=== PATIENT | male | born 1965 | race Caucasian/White ===

== ENCOUNTER 2016-12-18 22:25 | Inpatient (IN) ==
[2016-12-18] MEDS ORDERED: ASPIRIN 325 MG TABLET PO STA (22:42)
[2016-12-18] MEDS ORDERED: ONDANSETRON 4 MG/2 ML VIAL IV STA (22:42)
--- NOTE | 2016-12-18 22:45 | EKG Report ---
Stationary ECG Study [facility] ER Test Date: 12/18/2016 10:29:03 PM Pat Name: SHEILA SULLIVAN Department: Room: 287 Gender: M Scorer Single: : 1965 Requested by: Susy Bo Order Number: [id number] Reading MD: MAX SHAHID Intervals [place] Rate: 54 P: 59 SD: 174 QRS: 44 QRSD: 102 T: 60 QT: 414 QTc: 400 Interpretive Statements SINUS BRADYCARDIA OLD ANTEROSEPTASL INFARCT Electronically Signed On 12-19-16 15:08:12 CDT by MAX SHAHID [email or web address]
[2016-12-18] MEDS ORDERED: LIDOCAINE 1% 20 ML VIAL ONE (22:46)
[2016-12-18] MEDS ORDERED: HEPARIN/NACL 0.9% 2 UNITS/ML 1,000 ML IV ONE (22:46)
[2016-12-18] MEDS ORDERED: MIDAZOLAM 2 MG/2 ML VIAL ONE (22:46)
[2016-12-18] MEDS ORDERED: HYDROmorphone 2 MG/1 ML VIAL ONE (22:46)
[2016-12-18 22:49] LABS: Basophils # 0.1 10*3/uL (0.0-0.2); Basophils % 0.7 % (0.0-0.8); Eosinophils # 0.4 10*3/uL (0.0-0.87); Eosinophils % 5.5 % (0.00-10.9); Hematocrit 44.6 VOL% (42.0-52.0); Hemoglobin 14.9 GM/DL (14.0-18.0); Immature Granulocytes % 0.3 %; Immature Granulocytes Absolute 0.02 #; Lymphocytes # 2.3 10*3/uL (1.4-4.0); Lymphocytes % 31.5 % (21.2-54.2); Mean Corpuscular HGB Conc 33.4 GM/DL (32-36); Mean Corpuscular Hemoglobin 31 PG (27-34); Mean Corpuscular Volume 93.9 FL (87-102); Monocytes # 0.7 10*3/uL (0.11-0.8); Monocytes % 9.3 % (1.7-12.7); Neutrophils # 3.8 10*3/uL (1.4-7.4); Neutrophils % 52.7 % (38.7-73.9); Platelet Count 178 T/CUMM (130-400); Red Blood Count 4.75 MC/CUMM (3.8-5.5); Red Cell Distribution Width 12.3 % (9.3-17.3); White Blood Count 7.2 T/CUMM (4-12)
[2016-12-18 22:56] LABS: INR 1.1; PT Patient Result 11.4 SECS
[2016-12-18 23:11] LABS: Albumin 3.9 G/DL (3.4-5.0); Bilirubin,Total 0.8 MG/DL (0.2-1.0); Calcium 8.8 MG/DL (8.5-10.1); Magnesium 2.2 MG/DL (1.8-2.4); Potassium 3.7 MMOL/L (3.5-5.1); Total Protein 6.7 G/DL (6.4-8.3)
--- NOTE | 2016-12-18 23:16 | XRay Report ---
Portable chest Date: 12/18/2016 Clinical history: Chest pain Comparison: 10/06/2016 Technique: Portable AP sitting chest Findings: The heart is normal in size. Artifactual densities limit the exam. The lungs remain overexpanded. Unremarkable mediastinum with degenerative changes. Impression: COPD with no acute parenchymal findings. PROCEDURE INTERPRETED AT [facility] Final Report Signed by: Dr. Daphne Ward
--- NOTE | 2016-12-18 23:18 | Cardiac Catheterization ---
Date of Procedure:: 12/18/16 Procedure: CLINICAL SUMMARY: The patient has a history of multivessel coronary artery disease with previous MIs and stenting. He was having some cardiac symptoms at home and EMS activated the pharmacy laboratory technician for ST elevation in the inferior leads. We are performing an emergent cardiac catheterization for definitive coronary artery assessment and possible revascularization. PROCEDURES PERFORMED: 1. Right femoral percutaneous arteriotomy 2. Left heart catheterization. 3. Resting hemodynamics. 4. Left ventriculography. 5. Coronary arteriography. 6. Right femoral arteriogram. 7. Angio-Seal closure of the right femoral artery. DESCRIPTION OF PROCEDURE: After obtaining informed consent, the patient was brought to the cardiac catheterization lab where the right groin was prepped and draped in the usual sterile manner. Using IV sedation, local anesthesia, and Modified Seldinger technique, a needle was placed in the right femoral artery and a sheath was positioned without difficulty. A left coronary catheter was advanced over a guidewire under fluoroscopic control to the ascending aorta where angiograms of the left coronary artery were undertaken in multiple views. After adequate angiograms, this catheter was withdrawn and a right coronary catheter was advanced over a guidewire under fluoroscopic control to the ascending aorta with angiograms of the RCA were undertaken in numerous projections. After adequate angiograms, this catheter was removed and a pigtail ventriculographic catheter was advanced over a guidewire under fluoroscopic control to the aortic valve and left ventricular pressures were measured. After adequate pressures were measured, this catheter was used to perform left ventriculography in the MCGARRY projection. This catheter was then withdrawn under hemodynamic monitoring and removed from the patient. A right femoral arteriogram was performed showing adequate sheath placement for closure device deployment. The sheath was then removed and an Angio-Seal device was used to obtain hemostasis. The patient was transferred back to the room having suffered no immediate complications. HEMODYNAMICS: See the accompanying data sheet. CORONARY ARTERIOGRAPHY: LEFT MAIN: The left main coronary artery is a moderate caliber vessel, which bifurcates into the left anterior descending and left circumflex coronary arteries. The left main coronary artery has no significant obstructive disease. LEFT CIRCUMFLEX: The left circumflex coronary artery is a small to moderate size vessel which gives off a single moderate-sized obtuse marginal branch. There are mild luminal irregularities in the circumflex system. There is a widely patent stent in the mid vessel. I don't see any significant focal obstructive disease in this vessel. It is unchanged from his previous catheterization from March 2016. LEFT ANTERIOR DESCENDING: The left anterior descending artery is a moderate size vessel which gives off a couple of small diagonal branches. There are mild luminal irregularities in the left anterior descending system but no significant focal obstructive disease is seen. 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 RIGHT CORONARY ARTERY: The right coronary artery is a small to moderate size vessel was gives off a posterior descending artery and a posterolateral system. There are mild luminal irregularities through the right coronary artery. The posterior descending artery is less than 2 mm in size. It is a relatively small vessel which has some diffuse disease in its mid to distal segment. There is an area of 50-60% stenosis in the midportion of the posterior descending coronary artery which is not significant change from previous catheterization in March 2016. LEFT VENTRICULOGRAPHY: Left ventriculogram shows left ventricular ejection fraction estimated at 35% with global hypokinesis. PERIPHERAL ARTERIOGRAPHY: Right femoral arteriogram shows a normal right iliofemoral artery with adequate sheath placement for closure device deployment. IMPRESSIONS: 1. I don't see any high-grade stenosis at this time. There is not actually appear to be an acute coronary syndrome. The patient has widely patent stents and some mild to moderate nonobstructive disease which is unchanged from previous catheterization in March 2016. 2. Moderate to severe ischemic cardiomyopathy as described above. This also appears to be relatively stable. 3. Normal right iliofemoral artery with successful and distal closure of this vessel. PLAN: The patient was transferred to the telemetry unit for further workup and management. Anesthesia: minimal conscious sedation Surgeon / Physician: Norbert Momin Estimated blood loss: minimal Condition: stable Disposition: floor - Medications / Follow-up
--- NOTE | 2016-12-18 23:20 | Emergency Department Note ---
ISalvador Mantricia, am scribing for, and in the presence of, Susy Bo DO 22:50. IAnupam Catherine, DO, personally performed the services described in this documentation, ascribed by Maeve Franco in my presence, and it is both accurate and complete 320 . Arrival - Arrival Chief Complaint: Chest Pain ED Nursing Triage Note: PT ARRIVES VIA EMS WITH COMPLAINTS OF CHEST PAIN THAT STARTED AT 1600. STATES THAT IT IS A SHARP PAIN IN THE LEFT CHEST. STATES THAT THIS HAS BEEN OFF AND ON FOR THREE WEEKS. PT RATES PAIN AT 10/10. PT STATES THAT HE FELT DIZZY AND LIKE HE WAS GOING TO PASS OUT. EMS ACTIVATED STEMI OFF ON EKG, PT ARRIVES IN NO DISTRESS. STATES THAT HE DOES HAVE SOME SOB WHEN THE PAIN STARTS. PT DENIES N/V. STATES THAT HE DID TAKE 1 SL NITRO. Mode of Arrival: Stretcher Limitations: No Limitations Source: Patient - History of Present Illness HPI Narrative: Pt is 51y male brought to ED by EMS with complains of sharp chest pain since 16: 00 today. Pt notes heart was beating "extremely fast" and syncopal episode known time frame of LOC, with some nausea, but denies left arm pain or jaw pain. Pt took 1 nitro and aspirin when pain started. Pt has PMHx of 2 episodes of NJ in 2006 and again in 2007 with 4 stents and CAD; HTN. He notes that his heart is "45% damaged." Pt is on Vale Beta sesar. Pt recently quit smoking. Onset (ago): hour(s) Consistency: constant Severity: moderate Severity scale (1-10): 5 Quality: sharp Allergies/Adverse Reactions: Allergies Allergy/AdvReac Type Severity Reaction Status Date / Time morphine Allergy Severe HIVES Verified 07/07/16 13:45 Sulfa (Sulfonamide Allergy Severe HIVES Verified 07/07/16 13:45 Antibiotics) sulfamethoxazole Allergy Severe HIVES Verified 07/07/16 13:45 [From Bactrim] trimethoprim [From Bactrim] Allergy Severe HIVES Verified 07/07/16 13:45 Home Medications: Home Medications Medication Instructions Recorded Confirmed Type Clopidogrel Bisulfate [Clopidogrel] 75 mg PO DAILY 03/13/15 12/18/16 History Diclofenac 1% Gel [Voltaren 1% Gel] 1 unit TRANSDERM BID PRN 03/13/15 12/18/16 History Gabapentin 600 mg PO TID 03/13/15 12/18/16 History Hydrocodone/Acetaminophen 1 tablet PO QID 03/13/15 12/18/16 History [Hydrocodon-Acetaminophn 10-325] Tizanidine HCl 4 mg PO TID 03/13/15 12/18/16 History Aspirin [Ecotrin] 81 mg PO DAILY 04/07/15 12/18/16 History Furosemide Tab [Lasix Tab] 40 mg PO DAILY tablet 03/12/16 12/18/16 Rx Nitroglycerin Sl Tab [Nitrostat] 0.4 mg SL Q5M PRN 07/07/16 12/18/16 History Pantoprazole Tab [Protonix Tab] 40 mg PO DAILY #30 tablet 07/08/16 12/18/16 Rx Nebivolol [Bystolic] 10 mg PO DAILY 12/18/16 12/18/16 History Rosuvastatin [Crestor] 20 mg PO BEDTIME 12/18/16 12/18/16 History Review of System - Review of System 12 point system: reviewed and no additional remarkable complaints except as stated - Review of System Constitutional: Absent: chills, diaphoresis, fever Respiratory: Absent: respiratory distress Cardiovascular: Present: chest pain (left; sharp), palpitations (extremely fast) , syncope. Absent: dyspnea on exertion, edema Gastrointestinal: Present: nausea. Absent: abdominal pain, vomiting Musculoskeletal: Absent: arm pain, neck pain Skin: Absent: rash Medical,Surgical,& Family Hx - Medical History Cardio: History of: CAD, Hypertension, [place] (x2 Stents x4) Psychological: History of: Anxiety Disorders Neurology: No history of: Seizures Respiratory: History of: COPD Gastrointestinal: History of: GERD - Surgical History Cardiac Surgeries: Sugical HX of: Cardiac Catheterization Neurologic Surgeries: Patient denies: Neurologic Surgery HEENT Surgeries: Patient denies: Thyroid Surgery Abdominal Surgeries: Patient denies: Abdominal Surgery Reproductive Surgeries: Patient denies;: Genitourinary Surgery Orthopedic Surgeries: Surgical HX of;: Orthopedic Surgery, Spinal Surgery ( spinal fusion), Total Knee Replacement (left knee) - Family History Family History: Reports;: Family Cancer (father), Family Diabetes (mother), Family Heart Disease (grandparents (both sides), mother), Family Hypertension ( "everybody") Denies;: Family Anesthesia Reaction, Family Psychiatric Problems, Family Stroke - Social History Smoking Status: Former smoker Frequency of Alcohol Use: None Type of Drug Use: None Marital Status: Unknown Functional capacity: independent ambulation Exam Vital Signs: Vital Signs Temperature 98.4 F 12/18/16 22:25 Pulse Rate 71 12/18/16 22:42 Respiratory Rate 20 12/18/16 22:42 Blood Pressure 161/85 12/18/16 22:25 O2 Sat by Pulse Oximetry 100 12/18/16 22:25 - General General appearance: alert, in no apparent distress - Head Head exam: Present: atraumatic, normocephalic - Eye Eye exam: Present: PERRL, EOMI - ENT ENT exam: Present: mucous membranes moist. Absent: mucous membranes dry - Neck Neck exam: Present: full ROM. Absent: tenderness - Chest Chest inspection: Present: symmetric chest wall rise. Absent: tenderness - Respiratory Respiratory exam: Present: normal lung sounds bilaterally. Absent: accessory muscle use, respiratory distress - Cardiovascular Cardiovascular exam: Present: regular rate, normal rhythm, normal heart sounds. Absent: tachycardia - Abdominal Exam Abdominal exam: Present: soft, normal bowel sounds. Absent: distention, tenderness, guarding, rebound - Extremities Exam Extremities exam: Present: full ROM, normal capillary refill. Absent: tenderness, pedal edema - Back Exam Back exam: Present: normal inspection - Neurological Exam Neurological exam: Present: alert, oriented X3, CN II-XII intact. Absent: motor sensory deficit - Psychiatric Psychiatric exam: Present: normal affect, normal mood - Skin Skin exam: Present: warm, dry, intact, normal color Course Course Narrative: This is a 51-year-old male is coming into the ER today following an episode of some palpitations and chest discomfort at home. He reports symptoms onset about 4 o'clock. The patient does have a significant cardiac history he's had several visits to the Interpreter Translator and does have stents in place. He reports taking all of his medications as directed. He stated that when was going on he was feeling some shortness of breath and diaphoresis but no nausea or radiation was reported. EMS arrived on scene did an EKG and called a STEMI alert. At arrival in the ER the patient's EKG for meat is really not show signs of STEMI he has left ventricular hypertrophy and very slight elevation in the inferior leads. Dr. Momin for cardiology was also in the department. He did not call a STEMI but will be taking the patient to the Interpreter Translator for further evaluation. Physical exam is also stable HCTZ and is normal neck is supple heart is regular rate and rhythm is bradycardic lungs are clear abdomen is round soft his extremities are intact his neurologic exam is nonfocal. The patient is going to the cardiology Interpreter Translator per Dr. Freire thank you - Consultations Consultation #1: Dr. Momin at bedside Results - Labs CBC & BMP: 12/18/16 22:37 12/18/16 22:37 Lab Results: I have reviewed the patients labs - EKG EKG results: interpreted by ERMD - Impressions sinus bradycardia inferior changes but no stemi noted Disposition Clinical Impression: Chest pain Case discussed with: patient Disposition: Still a Patient Condition: Stable Time of Disposition: 23:20
[2016-12-19 05:45] LABS: Basophils % 0.6 % (0.0-0.8); Eosinophils # 0.3 10*3/uL (0.0-0.87); Eosinophils % 6.8 % (0.00-10.9); Hemoglobin 12.9 GM/DL (14.0-18.0); Immature Granulocytes % 0.2 %; Immature Granulocytes Absolute 0.01 #; Lymphocytes # 2.3 10*3/uL (1.4-4.0); Lymphocytes % 47.9 % (21.2-54.2); Mean Corpuscular HGB Conc 33.1 GM/DL (32-36); Mean Corpuscular Hemoglobin 31 PG (27-34); Mean Corpuscular Volume 94.9 FL (87-102); Mean Platelet Volume 11.3 FL (9.6-12.0); Monocytes # 0.6 10*3/uL (0.11-0.8); Monocytes % 11.6 % (1.7-12.7); Neutrophils # 1.6 10*3/uL (1.4-7.4); Neutrophils % 32.9 % (38.7-73.9); Platelet Count 150 T/CUMM (130-400); Red Blood Count 4.11 MC/CUMM (3.8-5.5); Red Cell Distribution Width 12.3 % (9.3-17.3); White Blood Count 4.8 T/CUMM (4-12)
[2016-12-19 06:13] LABS: Blood Urea Nitrogen 19 MG/DL (7-18); Calcium 8.2 MG/DL (8.5-10.1); Glucose 81 MG/DL (74-106); Osmolality,Calculated 283.1 MOS/KG (273-304); Potassium 4.2 MMOL/L (3.5-5.1); Sodium 142 MMOL/L (136-145); Troponin I Only 0.019 NG/ML (0.00-0.045)
[2016-12-19 07:42] LABS: Eosinophils 4 % (0-10); Hypochromasia 1+; Lymphocytes 39 % (20-55); Platelet Estimate Adequate; Segmented Neutrophils 51 % (50-85); Total Cells Counted 100
[2016-12-19] MEDS: ASPIRIN EC 81 MG TABLET PO SCH (09:00)
[2016-12-19] MEDS: CLOPIDOGREL 75 MG TABLET PO SCH (09:00)
[2016-12-19] MEDS: tiZANidine 4 MG TABLET PO SCH ×3 (09:00→22:19)
[2016-12-19] MEDS: PANTOPRAZOLE 40 MG TABLET PO SCH (09:00)
[2016-12-19] MEDS: GABAPENTIN 600 MG TABLET PO SCH ×3 (09:00→22:18)
--- NOTE | 2016-12-19 09:48 | EKG Report ---
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
[2016-12-19] MEDS ORDERED: ceFAZolin 1,000 MG VIAL IRRIG ONE (10:55)
[2016-12-19] MEDS ORDERED: diphenhydrAMINE CAP 25 MG CAPSULE PO ONE (10:55)
[2016-12-19] MEDS ORDERED: DIAZEPAM 5 MG TABLET PO ONE (10:55)
--- NOTE | 2016-12-19 11:00 | Cardiology History & Physical ---
Assessment and Plan (1) Syncope Status: Acute Assessment and plan: The patient has palpitations followed by syncope. This is happen several times over the last week or so. Last night EMS was activated and no suspicion of an acute inferior myocardial infarction. Catheterization showed no significant new obstructive coronary disease. His previous stents were patent. Ultimately , the patient has profound bradycardia with heart rates of 40-45 at rest. He also has a severe ischemic cardio myopathy with an ejection fraction of 35% which has not changed despite revascularization and medical management. I think the patient needs a dual-chamber defibrillator to treat his severe resting bradycardia and protect him from potentially fatal cardiac arrhythmias. The risks and alternatives of this were discussed with the patient today who understands and wishes to proceed. I'm going to schedule this procedure for Tuesday. Current Visit: Yes (2) Chest pain Status: Acute Assessment and plan: I really think his chest discomfort is related to his arrhythmia. Catheterization did not show any new/significant obstructive coronary disease. Current Visit: Yes (3) Anxiety Status: Chronic Current Visit: No (4) CAD (coronary artery disease) Status: Chronic Assessment and plan: Stable multivessel coronary artery disease with patent stents on cardiac catheterization Current Visit: No (5) COPD (chronic obstructive pulmonary disease) Status: Chronic Current Visit: No (6) GE reflux Status: Chronic Current Visit: No (7) Hypertension Status: Chronic Current Visit: No (8) Ischemic cardiomyopathy Status: Chronic Assessment and plan: As noted above, with his severe ischemic cardiomyopathy, palpitations, and syncope, as well as his severe bradycardia, I think he needs a dual-chamber internal cardiac defibrillator. Current Visit: No (9) Tobacco abuse Status: Chronic Current Visit: No History of Present Illness History of present illness: Mr. Lety Ortiz is a 51 year old male who has a history of multivessel coronary artery disease with previous interventions in the past. He also has a history of a severe cardiomyopathy. Yesterday the patient was having some unusual chest discomfort symptoms. He actually had a syncopal episode. EMS was called and initial EKG showed ST elevation in the Assistant Plant Manager was activated. He was taken emergently to cardiac catheterization was this did not show any significant new coronary artery disease. The patient does have a severe ischemic cardiomyopathy with an ejection fraction of around 35%. Ultimately, the patient describes having episodes of palpitations and then finding himself waking up on the floor. I think he is having transient ventricular arrhythmias. In addition, he has had fatigue and dyspnea and his resting heart rate hovers around 40-45 range. There are no medications that should be causing his bradycardia. Based on his cardiac catheterization, his cardiomyopathy, his severe bradycardia, and his symptoms of palpitations and syncope I think ultimately that he needs a dual-chamber defibrillator. We discussed the risks and alternatives of this and I'm going to schedule this for Tuesday. Home Medications Medication Instructions Recorded Confirmed Type Clopidogrel Bisulfate [Clopidogrel] 75 mg PO DAILY 03/13/15 12/18/16 History Diclofenac 1% Gel [Voltaren 1% Gel] 1 unit TRANSDERM BID PRN 03/13/15 12/18/16 History Gabapentin 600 mg PO TID 03/13/15 12/18/16 History Hydrocodone/Acetaminophen 1 tablet PO QID 03/13/15 12/18/16 History [Hydrocodon-Acetaminophn 10-325] Tizanidine HCl 4 mg PO TID 03/13/15 12/18/16 History Aspirin [Ecotrin] 81 mg PO DAILY 04/07/15 12/18/16 History Furosemide Tab [Lasix Tab] 40 mg PO DAILY tablet 03/12/16 12/18/16 Rx Nitroglycerin Sl Tab [Nitrostat] 0.4 mg SL Q5M PRN 07/07/16 12/18/16 History Pantoprazole Tab [Protonix Tab] 40 mg PO DAILY #30 tablet 07/08/16 12/18/16 Rx Nebivolol [Bystolic] 10 mg PO DAILY 12/18/16 12/18/16 History Rosuvastatin [Crestor] 20 mg PO BEDTIME 12/18/16 12/18/16 History Home Medications Medication Instructions Recorded Confirmed Type Clopidogrel Bisulfate [Clopidogrel] 75 mg PO DAILY 03/13/15 12/18/16 History Diclofenac 1% Gel [Voltaren 1% Gel] 1 unit TRANSDERM BID PRN 03/13/15 12/18/16 History Gabapentin 600 mg PO TID 03/13/15 12/18/16 History Hydrocodone/Acetaminophen 1 tablet PO QID 03/13/15 12/18/16 History [Hydrocodon-Acetaminophn 10-325] Tizanidine HCl 4 mg PO TID 03/13/15 12/18/16 History Aspirin [Ecotrin] 81 mg PO DAILY 04/07/15 12/18/16 History Furosemide Tab [Lasix Tab] 40 mg PO DAILY tablet 03/12/16 12/18/16 Rx Nitroglycerin Sl Tab [Nitrostat] 0.4 mg SL Q5M PRN 07/07/16 12/18/16 History Pantoprazole Tab [Protonix Tab] 40 mg PO DAILY #30 tablet 07/08/16 12/18/16 Rx Nebivolol [Bystolic] 10 mg PO DAILY 12/18/16 12/18/16 History Rosuvastatin [Crestor] 20 mg PO BEDTIME 12/18/16 12/18/16 History Allergies Allergy/AdvReac Type Severity Reaction Status Date / Time morphine Allergy Severe HIVES Verified 07/07/16 13:45 Sulfa (Sulfonamide Allergy Severe HIVES Verified 07/07/16 13:45 Antibiotics) sulfamethoxazole Allergy Severe HIVES Verified 07/07/16 13:45 [From Bactrim] trimethoprim [From Bactrim] Allergy Severe HIVES Verified 07/07/16 13:45 12 point system: reviewed and no additional remarkable complaints except as stated Medical,Surgical,& Family Hx - Medical History Cardio: History of: CAD, Hypertension, [place] (x2 Stents x4) Psychological: History of: Anxiety Disorders Neurology: No history of: Seizures Respiratory: History of: COPD Gastrointestinal: History of: GERD - Surgical History Cardiac Surgeries: Sugical HX of: Cardiac Catheterization Neurologic Surgeries: Patient denies: Neurologic Surgery HEENT Surgeries: Patient denies: Thyroid Surgery Abdominal Surgeries: Patient denies: Abdominal Surgery Reproductive Surgeries: Patient denies;: Genitourinary Surgery Orthopedic Surgeries: Surgical HX of;: Orthopedic Surgery, Spinal Surgery ( spinal fusion), Total Knee Replacement (left knee) - Family History Family History: Reports;: Family Cancer (father), Family Diabetes (mother), Family Heart Disease (grandparents (both sides), mother), Family Hypertension ( "everybody") Denies;: Family Anesthesia Reaction, Family Psychiatric Problems, Family Stroke - Social History Smoking Status: Former smoker Frequency of Alcohol Use: None Type of Drug Use: None Cardiology Physical Exam - Constitutional Vitals: Vital Signs Temp Pulse Resp BP Pulse Ox 97.6 F 44 L 18 115/63 98 12/19/16 08:00 12/19/16 08:00 12/19/16 08:00 12/19/16 08:00 12/19/16 08:00 Intake and Output 12/18/16 12/19/16 12/19/16 23:59 07:59 15:59 Output Total 400 / 400 Balance -400 / -400 Output: Urine 400 / 400 Other: Voiding Method Urinal Weight 52.072 kg Patient Weight 12/19/16 23:59 Weight 52.072 kg Exam: General: Appears well developed, very thin, no apparent distress HEENT: Normocephalic, atraumatic Neck: Supple Neck, Midline Trachea, No Bruit, No JVD Cardiac: Reg Rate and Rhythm, 2/6 systolic Murmur, no gallop, no rub Lungs: Clear to auscultation, No Wheeze, Rales, Rhonchi Neuro: Cranial Nerve 2-12 Intact, Motor Function Grossly Intact Abdomen: Soft, Active Bowel Sounds, No Masses, No Pulsations/Bruits Skin: Normal color, no rash Extremities: No Clubbing, No Cyanosis, No Edema, Normal Upper Extr. Pulses Musculoskeletal: No acute abnormality noted Psychiatric: The patient does not appear to be anxious or depressed Result/EKG - Labs CBC & BMP: 12/19/16 04:57 12/19/16 04:57 Lab Results: I have reviewed the past 24 hour labs Labs: Laboratory Results - last 24 hr 12/19/16 12/19/16 12/19/16 01:52 04:57 04:57 WBC 4.8 D RBC 4.11 Hgb 12.9 L D Hct 39.0 L MCV 94.9 MCH 31 MCHC 33.1 RDW 12.3 Plt Count 150 MPV 11.3 Neut % (Auto) 32.9 L Lymph % (Auto) 47.9 [place] % (Auto) 11.6 Eos % (Auto) 6.8 Baso % (Auto) 0.6 Neut # (Auto) 1.6 Lymph # (Auto) 2.3 [place] # (Auto) 0.6 Eos # (Auto) 0.3 Baso # (Auto) 0.0 Total Counted 100 Immature Gran % 0.2 Nucleated RBC % 0.0 Immature Gran # 0.01 Segmented Neutrophils 51 Lymphocytes 39 Monocytes 6 Eosinophils 4 Nucleated RBCs # 0.00 Platelet Estimate Adequate Hypochromasia 1+ Sodium 142 Potassium 4.2 Chloride 110 H Carbon Dioxide 25 Anion Gap 11.2 BUN 19 H Creatinine 0.90 GFR Calculation 96 BUN/Creatinine Ratio 21.00 H Glucose 81 Calculated Osmolality 283.1 Calcium 8.2 L Total Creatine Kinase 200 CK-MB (CK-2) 1.6 Troponin I 0.015 0.019 - EKG EKG results: interpreted by me
[2016-12-19] MEDS: ROSUVASTATIN 20 MG TABLET PO SCH (22:17)
[2016-12-20 05:29] LABS: Basophils % 0.8 % (0.0-0.8); Eosinophils # 0.3 10*3/uL (0.0-0.87); Eosinophils % 6.6 % (0.00-10.9); Hematocrit 39.1 VOL% (42.0-52.0); Immature Granulocytes % 0.4 %; Immature Granulocytes Absolute 0.02 #; Lymphocytes % 39.4 % (21.2-54.2); Mean Corpuscular HGB Conc 33.2 GM/DL (32-36); Mean Corpuscular Hemoglobin 32 PG (27-34); Mean Corpuscular Volume 94.7 FL (87-102); Mean Platelet Volume 11.3 FL (9.6-12.0); Monocytes # 0.5 10*3/uL (0.11-0.8); Monocytes % 10.1 % (1.7-12.7); Neutrophils # 2.2 10*3/uL (1.4-7.4); Neutrophils % 42.7 % (38.7-73.9); Platelet Count 136 T/CUMM (130-400); Red Blood Count 4.13 MC/CUMM (3.8-5.5); Red Cell Distribution Width 12.3 % (9.3-17.3)
[2016-12-20 05:59] LABS: Calcium 8.3 MG/DL (8.5-10.1); Potassium 5.1 MMOL/L (3.5-5.1)
--- NOTE | 2016-12-20 07:37 | EKG Report ---
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
[2016-12-20] MEDS ORDERED: diphenhydrAMINE CAP 25 MG CAPSULE PO ONE (08:00)
[2016-12-20] MEDS ORDERED: DIAZEPAM 5 MG TABLET PO ONE (08:00)
[2016-12-20 09:54] LABS: Troponin I Only 0.016 NG/ML (0.00-0.045)
[2016-12-20] MEDS: CLOPIDOGREL 75 MG TABLET PO SCH (10:04)
[2016-12-20] MEDS: PANTOPRAZOLE 40 MG TABLET PO SCH (10:04)
[2016-12-20] MEDS: GABAPENTIN 600 MG TABLET PO SCH ×3 (10:06→20:33)
[2016-12-20] MEDS: ASPIRIN EC 81 MG TABLET PO SCH (10:09)
[2016-12-20] MEDS ORDERED: TISSUE ADHESIVE 1 EACH APPLICATOR TOP ONE (10:15)
[2016-12-20] MEDS ORDERED: LIDOCAINE 1%/EPI INJ 20 ML VIAL ONE (10:15)
[2016-12-20] MEDS ORDERED: MIDAZOLAM 2 MG/2 ML VIAL ONE ×2 (10:32→10:49)
[2016-12-20] MEDS ORDERED: HYDROmorphone 2 MG/1 ML VIAL ONE ×2 (10:32→10:49)
[2016-12-20] MEDS ORDERED: ceFAZolin 1,000 MG VIAL ONE (10:34)
[2016-12-20] MEDS: tiZANidine 4 MG TABLET PO SCH ×3 (10:36→20:33)
--- NOTE | 2016-12-20 11:36 | Cardiac Defibrillator ---
- Preoperative diagnosis Date of Procedure:: 12/20/16 Preop Diagnosis: CAD with prior CA,, LVEF less than or equal to 35% Procedure: The patient presented with multiple syncopal episodes. I think these were likely secondary to ventricular tachycardia as he had palpitations preceding the syncope and has a severe ischemic cardiomyopathy, however the patient also has profound bradycardia with heart rates of around 40 at rest. Therefore he needs a dual-chamber defibrillator to treat both his bradycardia and his potential for ventricular tachycardia. Procedures performed 1. Percutaneous left subclavian venotomy with sheath placement 2. Placement of atrial and ventricular leads with threshold testing 3. Defibrillation threshold testing (DFT) 4. Placement of a Medtronic dual internal cardiac defibrillator Of note: This is an MRI compatible system. After informed consent was obtained was taken to catheter prepped and draped in usual sterile manner. Anesthesia provided sedation for this case. We placed 2 J-tipped wires in the left subclavian vein using a modified Seldinger technique in the usual fashion. With then a pocket approximately 2 cm below the left clavicular border using blunt and sharp dissection as well as electrocautery. We then pulled our wire into the pocket from below. Using safe sheaths, we placed a Medtronic 6947 52 cm ventricular lead into the right ventricular apex and secured it with a helical coil. Serial number on the ventricular lead is [id number] . Excellent capture and sensing thresholds were achieved. We then placed a Medtronic 5 03/10/1954 centimeter lead into the right atrial appendage and secured it with a helical coil. We performed threshold testing which showed excellent capture and sensing thresholds. Serial number on the atrial lead was [id number]. After the safe sheaths had been removed, we sutured the leads to the pocket floor using Ethibond suture. We then rinsed the pocket with antibiotic solution and then connected the leads to a Medtronic EVERA MRI XT dual chamber ICD . Serial number on the defibrillator is [id number]. After the device had been connected to the leads, it was placed in the pocket and sutured pocket floor with Ethibond suture. We then perform defibrillation threshold testing after 50 Hz induction of ventricular fibrillation. The device properly identified and defibrillated the patient with a greater than or equal to 10 J safety margin. We then closed the pocket 2 layers using Vicryl suture. We then applied a topical adhesive followed by Steri-Strips and a dressing. There were no apparent complications during the procedure. He was stable throughout the procedure and will now be transferred back to his room for recovery. Anesthesia: minimal conscious sedation Surgeon / Physician: Norbert Momin Estimated blood loss: minimal Condition: stable Disposition: floor - Medications / Follow-up
--- NOTE | 2016-12-20 15:00 | XRay Report ---
Portable chest Date: 12/20/2016 Clinical history: Lead placement Comparison: 12/18/2016 Technique: Portable AP sitting chest Findings: The heart is normal in size. Interval insertion of left subclavian atrioventricular AICD with no pneumothorax. The lungs remain overexpanded with stable mediastinum and osseous structures. Impression: Satisfactory insertion of left subclavian atrioventricular AICD with no pneumothorax. No acute parenchymal findings noted. PROCEDURE INTERPRETED AT [facility] DEPARTMENT OF RADIOLOGY Final Report Signed by: Dr. Daphne Ward
[2016-12-20] MEDS ORDERED: diphenhydrAMINE 2% CREAM 28 GM TUBE TOP PRN (16:42)
[2016-12-20] MEDS: diphenhydrAMINE CAP 25 MG CAPSULE PO PRN (16:52)
[2016-12-20] MEDS: ROSUVASTATIN 20 MG TABLET PO SCH (20:33)
[2016-12-21] MEDS: diphenhydrAMINE CAP 25 MG CAPSULE PO PRN (01:06)
[2016-12-21 06:15] LABS: Basophils % 0.5 % (0.0-0.8); Eosinophils # 0.4 10*3/uL (0.0-0.87); Hematocrit 39.1 VOL% (42.0-52.0); Hemoglobin 13.6 GM/DL (14.0-18.0); Immature Granulocytes % 0.3 %; Immature Granulocytes Absolute 0.02 #; Lymphocytes # 1.3 10*3/uL (1.4-4.0); Lymphocytes % 21.8 % (21.2-54.2); Mean Corpuscular HGB Conc 34.8 GM/DL (32-36); Mean Corpuscular Hemoglobin 31 PG (27-34); Mean Corpuscular Volume 90.1 FL (87-102); Mean Platelet Volume 11.9 FL (9.6-12.0); Monocytes # 0.6 10*3/uL (0.11-0.8); Neutrophils # 3.8 10*3/uL (1.4-7.4); Neutrophils % 62.4 % (38.7-73.9); Platelet Count 124 T/CUMM (130-400); Red Blood Count 4.34 MC/CUMM (3.8-5.5); Red Cell Distribution Width 11.9 % (9.3-17.3); White Blood Count 6.1 T/CUMM (4-12)
[2016-12-21 06:35] LABS: Calcium 8.4 MG/DL (8.5-10.1); Osmolality,Calculated 279.4 MOS/KG (273-304); Potassium 4.2 MMOL/L (3.5-5.1)
--- NOTE | 2016-12-21 07:58 | XRay Report ---
XR chest 2V Indication: Lead placement Comparison: 20 December 2016 Findings: The heart and mediastinum are normal in size and configuration. Pacemaker device is unchanged in position. The pulmonary vascularity is normal in caliber. Lung volumes are increased with prominent bronchial markings. No lung infiltrates, effusions, pneumothorax or other abnormality is demonstrated. Impression: Chronic lung changes. No acute process or significant change. PROCEDURE INTERPRETED AT [facility] DEPARTMENT OF RADIOLOGY Final Report Signed by: Dr. Jimmy Goldberg
[2016-12-21 08:16] VITALS: BP 159/98
[2016-12-21] MEDS: ASPIRIN EC 81 MG TABLET PO SCH (08:41)
[2016-12-21] MEDS: GABAPENTIN 600 MG TABLET PO SCH (08:41)
[2016-12-21] MEDS: CLOPIDOGREL 75 MG TABLET PO SCH (08:42)
[2016-12-21] MEDS: PANTOPRAZOLE 40 MG TABLET PO SCH (08:42)
[2016-12-21] MEDS: tiZANidine 4 MG TABLET PO SCH (08:42)
--- NOTE | 2016-12-21 11:09 | Discharge Summary ---
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 SAUNDRA CASTANEDA Mr. Lety Ortiz is a 51 year old male followed by Dr. Saundra Castaneda. History of multivessel coronary artery disease with previous interventions in the past. He also has a history of a severe cardiomyopathy. December 18, 2016, patient was brought to the emergency department at [facility] by EMS after experiencing chest pain. He actually had a syncopal episode. EMS was called and initial EKG showed ST elevation in the [employer] was activated. He was taken emergently to cardiac catheterization, by Dr. Momin, for emergent heart catheterization. Identified was no significant new coronary artery disease. He did not have a STEMI. The patient does have a severe ischemic cardiomyopathy with an ejection fraction of around 35%. Ultimately, the patient described having episodes of palpitations and then finding himself waking up on the floor. He was thought to be having transient ventricular arrhythmias. In addition, he had fatigue and dyspnea and his resting heart rate hovers around 40-45 range. Based on his cardiac catheterization, his cardiomyopathy, his severe bradycardia, and his symptoms of palpitations and syncope. December 20, 2016 Dr. Momin implanted the following : 1. Percutaneous left subclavian venotomy with sheath placement 2. Placement of atrial and ventricular leads with threshold testing 3. Defibrillation threshold testing (DFT) 4. Placement of a Medtronic dual internal cardiac defibrillator Of note: This is an MRI compatible system. He tolerated the procedure well without complication. Overnight, he has done well. He states he actually feels better today than he is felt in quite some time. His labs are stable. His device has been interrogated and found to be working appropriately. Chest x-ray is stable. He would like to be discharged home today and I think this is reasonable. He will be given a 1 week follow-up appointment to have the device interrogated at [facility] [place] [facility] the [facility]. He will also be given a one-month follow-up with Dr. Saundra Castaneda. Discharge medications: Aspirin 81 mg orally daily Plavix 75 mg orally daily Crestor 20 mg orally each evening Gabapentin 600 mg orally 3 times daily Pantoprazole 40 mg orally daily Bystolic 10 mg orally daily Patient's blood pressure will not tolerate PAULA inhibitor. - Time spent with patient Time with patient DS: Greater than 30 minutes Time spent discussing smoking cessation with patient: 3 to 10 minutes Diagnosis - Discharge Diagnosis (1) Bradycardia Status: Resolved (2) Chronic pain Status: Chronic (3) Chest pain Status: Resolved (4) Syncope Status: Resolved (5) Anxiety Status: Chronic (6) CAD (coronary artery disease) Status: Chronic (7) COPD (chronic obstructive pulmonary disease) Status: Chronic (8) Hypertension Status: Chronic (9) Ischemic cardiomyopathy Status: Chronic (10) Tobacco abuse Status: Chronic Specialty Discharge - Follow Up or Referrals Follow up with: Norbert Momin MD [Physician] - 1 Week (ICD device interrogation) Saundra Castaneda MD [Physician] - (4-6 weeks. ) Discharge Plan - Discharge Data Disposition: Disch To Home/Self Care Condition at Discharge: Stable Discharge Diet: heart healthy Activity: other (Post ICD expectations) Hygiene: other (Post ICD expectations) Weight Bearing at Discharge: other (Post ICD expectations) Driving: other (Post ICD expectations) Contact your physician if you experience:: fever over 101, Difficulty voiding, Redness or swelling, Nausea/Vomiting, Shortness of breath, Bleeding, pain uncontrolled by pain medications - Discharge Medications New Rosuvastatin [Crestor] 20 mg PO BEDTIME tablet Continue Gabapentin 600 mg PO TID Hydrocodone/Acetaminophen [Hydrocodon-Acetaminophn 10-325] 1 tablet PO QID Tizanidine HCl 4 mg PO TID Diclofenac 1% Gel [Voltaren 1% Gel] 1 unit TRANSDERM BID PRN PRN Reason: Pain Clopidogrel Bisulfate [Clopidogrel] 75 mg PO DAILY Aspirin [Ecotrin] 81 mg PO DAILY Nitroglycerin Sl Tab [Nitrostat] 0.4 mg SL Q5M PRN PRN Reason: Chest Pain Pantoprazole Tab [Protonix Tab] 40 mg PO DAILY #30 tablet Nebivolol [Bystolic] 10 mg PO DAILY - Follow Up or Referral - Forms/Instructions Exam - Constitutional Vitals: Period Temp Pulse Resp BP Sys/Roland Pulse Ox Last 24 Hr 97.4 F-99.1 F 59-65 16-20 108-159/64-98 94-100 Exam: General: [Appears well with no apparent distress.] [Pleasant and cooperative. ] [Appears comfortable.] HEENT: [PERRL, normocephalic, atraumatic. Mucous membranes moist. No jaundice noted. Conjunctiva moist and clear, sclerae anicteric] Neck: No JVD/HJR, no thyromegaly or lymphadenopathy noted. No carotid bruit appreciated Cardiac: [Regular rate and rhythm.] [No murmur rub or gallop.] Left chest wall with mild edema. Incision without dehiscence or drainage. Lungs: [Clear to auscultation without accessory muscle use to assist the respiratory pattern.] Not requiring oxygen Abdomen: Soft, bowel sounds normoactive. Nontender and nondistended. No abdominal bruit or thrill noted. No masses noted. Musculoskeletal: No fluid collection. Decreased range of motion is noted. Extremities: No clubbing, cyanosis noted. [ No edema noted.] Left arm sling intact. Upper extremity pulses 2+. Lower extremity pulses 2+. Capillary refill less than 3 seconds. Skin: No unusual lesions or rashes. No skin breakdown appreciated. Neuro: Awake, alert and oriented 3. Moves all extremities well without hemiparesis or paralysis. No essential tremor is appreciated. Discharge Results Labs on day of discharge: Labs from last 24 hours 12/21/16 12/21/16 05:13 05:13 WBC 6.1 RBC 4.34 Hgb 13.6 L Hct 39.1 L MCV 90.1 MCH 31 MCHC 34.8 RDW 11.9 Plt Count 124 L MPV 11.9 Neut % (Auto) 62.4 Lymph % (Auto) 21.8 [place] % (Auto) 9.0 Eos % (Auto) 6.0 Baso % (Auto) 0.5 Neut # (Auto) 3.8 Lymph # (Auto) 1.3 L [place] # (Auto) 0.6 Eos # (Auto) 0.4 Baso # (Auto) 0.0 Immature Gran % 0.3 Nucleated RBC % 0.0 Immature Gran # 0.02 Nucleated RBCs # 0.00 Sodium 140 Potassium 4.2 Chloride 103 Carbon Dioxide 29 Anion Gap 12.2 BUN 17 Creatinine 0.90 GFR Calculation 94 BUN/Creatinine Ratio 18.00 Glucose 82 Calculated Osmolality 279.4 Calcium 8.4 L - Imaging and Cardiology Cardiology Procedure: report reviewed by me Procedure: Chest x-ray: report reviewed by me DS: Provider Date of admission: 12/20/16 12:38 Primary care physician: Ioana Kennedy MD Attending physician on admission: Norbert Momin MD Discharging clinician: Lucina Luong NP Expected date of discharge: 12/21/16
== END 2016-12-21 12:40 | disposition home or self-care (01) | DRG 225 ==
LOC: EDUNIT# → EDBD → N.ED 22:25 → N.TELEN 22:44 → INTOOBSV 12-19 00:12
PROVIDERS: ADMIT Internal Medicine Cardiovascular Disease; ATTEND Internal Medicine Cardiovascular Disease
PROC: CLCCHCL (ICD-10-PCS; 2016-12-18 23:15)
PROC: CLDCICD (2016-12-20 12:15)

== ENCOUNTER 2017-03-11 11:12 | Inpatient (IN) ==
--- NOTE | 2017-03-11 12:28 | Emergency Department Note ---
Arrival - Arrival Chief Complaint: Arrhythmia/Palpitations Stated Complaint: heart racing,has pacemaker,fell out last time ED Nursing Triage Note: pt reports he was walking around at [employer] and felt like his heart was pounding. reports felt like he was going to pass out felt dizzy and sob. denies chest pain but reports felt and uncomfortable feeling in his chest. Mode of Arrival: Ambulatory Time Seen by Provider: 03/11/17 12:23 - History of Present Illness HPI Narrative: This 51-year-old white male presents with a history of significant arrhythmias primarily bradycardic for which he had a pacemaker placed. However over the last, primarily bradycardic. The patient presented to our ER back in December where he had a syncopal spell in the ER with his heart rate dropping. To that and he was given a Medtronic dual internal cardiac defibrillator. Since December he has had increasingly bothersome periods where he gets a rapid heartbeat and his heart feels like it is pounding out of his chest. In association with this he experiences shortness of breath, diaphoresis, and the sensation that he is about to pass out. Of note he has had no chest pain with these episodes. Onset (ago): hour(s) (Patient presents 1 hour after episode) Allergies/Adverse Reactions: Allergies Allergy/AdvReac Type Severity Reaction Status Date / Time morphine Allergy Severe HIVES Verified 07/07/16 13:45 Sulfa (Sulfonamide Allergy Severe HIVES Verified 07/07/16 13:45 Antibiotics) sulfamethoxazole Allergy Severe HIVES Verified 07/07/16 13:45 [From Bactrim] trimethoprim [From Bactrim] Allergy Severe HIVES Verified 07/07/16 13:45 Home Medications: Home Medications Medication Instructions Recorded Confirmed Type Clopidogrel Bisulfate [Clopidogrel] 75 mg PO QAM 03/13/15 03/11/17 History Diclofenac 1% Gel [Voltaren 1% Gel] 1 unit TRANSDERM BID PRN 03/13/15 03/11/17 History Hydrocodone/Acetaminophen 1 tablet PO QID 03/13/15 03/11/17 History [Hydrocodon-Acetaminophn 10-325] Tizanidine HCl 4 mg PO TID 03/13/15 03/11/17 History Nitroglycerin Sl Tab [Nitrostat] 0.4 mg SL Q5M PRN 07/07/16 03/11/17 History Nebivolol [Bystolic] 10 mg PO DAILY 12/18/16 03/11/17 History Rosuvastatin [Crestor] 20 mg PO BEDTIME tablet 12/21/16 03/11/17 Rx Aspirin Chew Tab 81 mg PO QAM 03/11/17 03/11/17 History Gabapentin 300 mg PO QID 03/11/17 03/11/17 History Review of System - Review of System 12 point system: reviewed and no additional remarkable complaints except as stated - Review of System Constitutional: Present: as per HPI Respiratory: Present: as per HPI Cardiovascular: Present: as per HPI Gastrointestinal: Present: as per HPI Medical,Surgical,& Family Hx - Medical History Cardio: History of: CAD, Hypertension, LA (x2 Stents x4) Psychological: History of: Anxiety Disorders Neurology: No history of: Seizures Respiratory: History of: COPD Gastrointestinal: History of: GERD - Surgical History Cardiac Surgeries: Sugical HX of: Cardiac Catheterization, Internal Defibrillator (8 weeks ago) Neurologic Surgeries: Patient denies: Neurologic Surgery HEENT Surgeries: Patient denies: Thyroid Surgery Abdominal Surgeries: Patient denies: Abdominal Surgery Reproductive Surgeries: Patient denies;: Genitourinary Surgery Orthopedic Surgeries: Surgical HX of;: Orthopedic Surgery, Spinal Surgery ( spinal fusion), Total Knee Replacement (left knee) - Family History Family History: Reports;: Family Cancer (father), Family Diabetes (mother), Family Heart Disease (grandparents (both sides), mother), Family Hypertension ( "everybody") Denies;: Family Anesthesia Reaction, Family Psychiatric Problems, Family Stroke - Social History Smoking Status: Former smoker Exam Physical Examination: GENERAL: Well developed, well nourished elderly white male in no acute distress. HEENT: Normocephalic. No trauma. Moist mucous membranes. EOMI. PERRLA. ENT NML NECK: Supple. No adenopathy. CARDIAC: Regular. No murmurs. Heart rate 75 CHEST: Clear to auscultation. No respiratory distress. ABDOMEN: Soft. Nontender. Active bowel sounds. EXTREMITIES: No trauma. Normal ROM. No pedal edema. SKIN: No diaphoresis. No rash. NEURO: Alert. Oriented 3. Motor, sensory, vibratory intact. No focal deficits. Vital Signs: Vital Signs Temperature 100.0 F H 03/11/17 11:18 Pulse Rate 89 03/11/17 11:18 Respiratory Rate 18 03/11/17 11:18 Blood Pressure 140/101 03/11/17 11:18 O2 Sat by Pulse Oximetry 97 03/11/17 12:29 Course - Reevaluation(s) Reevaluation #1: Discussed with patient the need for further evaluation.I have advised admmission - Consultations Consultation #1: discussed with Dr Meza who will admit for further evaluation Results - Labs CBC & BMP: 03/11/17 10:18 Labs: I reviewed the laboratory data that has returned and it is normal. - Diagnostic Findings Procedure: Chest x-ray: image reviewed by me, report reviewed by me (Normal chest) Disposition Clinical Impression: tachyarrythmia, cad post sents Case discussed with: patient Disposition: Still a Patient Condition: Guarded Time of Disposition: 12:54
[2017-03-11 12:37] LABS: Basophils % 0.6 % (0.0-0.8); Eosinophils # 0.2 10*3/uL (0.0-0.87); Hematocrit 45.3 VOL% (42.0-52.0); Hemoglobin 15.6 GM/DL (14.0-18.0); Immature Granulocytes % 0.2 %; Immature Granulocytes Absolute 0.01 #; Lymphocytes # 2.1 10*3/uL (1.4-4.0); Lymphocytes % 32.6 % (21.2-54.2); Mean Corpuscular HGB Conc 34.4 GM/DL (32-36); Mean Corpuscular Hemoglobin 32 PG (27-34); Mean Corpuscular Volume 92.1 FL (87-102); Mean Platelet Volume 11.3 FL (9.6-12.0); Monocytes # 0.6 10*3/uL (0.11-0.8); Neutrophils # 3.5 10*3/uL (1.4-7.4); Neutrophils % 53.6 % (38.7-73.9); Platelet Count 154 T/CUMM (130-400); Red Blood Count 4.92 MC/CUMM (3.8-5.5); Red Cell Distribution Width 12.1 % (9.3-17.3); White Blood Count 6.4 T/CUMM (4-12)
[2017-03-11 12:41] LABS: PT Patient Result 10.7 SECS
[2017-03-11 12:43] LABS: Apearance,Urine CLEAR (Clear); Bilirubin,Urine Negative (Negative); Blood, Urine Negative (Negative); Glucose,Urine (UA) Negative (Negative); Ketones,Urine Negative (Negative); Mucus,Urine Occasional /LPF (Occasional); Nitrite,Urine Negative (Negative); Protein,Urine Negative; RBC,Urine <1 /HPF (0-4); Urine Color Yellow (Yellow); Urine Urobilinogen < 2.0 EU/DL (0.2-1.0); WBC,Urine <1 /HPF (0-6)
--- NOTE | 2017-03-11 12:46 | XRay Report ---
XR chest 1V portable Indication: Shortness of breath. Comparison: Chest x-ray 12/21/2016 Technique: Portable AP chest was performed. Findings: Heart size is normal. Pulmonary vasculature appears within normal limits. No significant abnormality of the mediastinal contours demonstrated. Lungs are clear. Bones and soft tissues demonstrate no significant abnormalities. ASCVD is stable in position. Impression: 1. No evidence of acute pathology. 03/11/2017 12:43 PM PROCEDURE INTERPRETED AT [facility] DEPARTMENT OF RADIOLOGY Final Report Signed by: Dr. Loc Martinez
[2017-03-11 12:51] LABS: Alanine Aminotransferase 18 U/L (16-61); Albumin 4.4 G/DL (3.4-5.0); Alkaline Phosphatase 74 U/L (45-117); Aspartate Amino Transferase 21 U/L (0-37); Bilirubin,Total < 0.39 MG/DL (0.2-1.0); Blood Urea Nitrogen 16 MG/DL (7-18); Calcium 9.3 MG/DL (8.5-10.1); Glucose 89 MG/DL (74-106); Osmolality,Calculated 282.1 MOS/KG (273-304); Potassium 4.1 MMOL/L (3.5-5.1); Sodium 142 MMOL/L (136-145); Total Protein 7.4 G/DL (6.4-8.3); Troponin I Only < 0.015 NG/ML (0.00-0.045)
[2017-03-11 12:52] LABS: Thyroid Stimulating Hormone 0.988 uIU/ml (0.358-3.74)
[2017-03-11 13:02] LABS: Free T4 (Free Thyroxine) 1.03 NG/DL (0.76-1.46); Magnesium 2.3 MG/DL (1.8-2.4); Troponin I Only < 0.015 NG/ML (0.00-0.045)
[2017-03-11 13:27] LABS: Barbiturates Screen,Urine Negative (Negative); Benzodiazepines Screen,Urine Negative (Negative); Cannabinoid Screen,Urine Negative (Negative); Opiate Screen,Urine Positive (Negative); Phencyclidine Screen,Urine Negative (Negative)
--- NOTE | 2017-03-11 14:10 | Cardiology History & Physical ---
Assessment and Plan - Time spent with patient Time spent with patient: Greater than 30 minutes (1) Palpitations Status: Acute Assessment and plan: SEE PLAN OF CARE LISTED BELOW Current Visit: Yes (2) Dyslipidemia Status: Chronic Assessment and plan: SEE PLAN OF CARE LISTED BELOW Current Visit: Yes (3) Ischemic cardiomyopathy Status: Chronic Assessment and plan: SEE PLAN OF CARE LISTED BELOW Current Visit: Yes (4) Near syncope Status: Acute Assessment and plan: SEE PLAN OF CARE LISTED BELOW Current Visit: Yes (5) Anxiety Status: Chronic Assessment and plan: SEE PLAN OF CARE LISTED BELOW Current Visit: No (6) CAD (coronary artery disease) Status: Chronic Assessment and plan: SEE PLAN OF CARE LISTED BELOW Current Visit: No (7) COPD (chronic obstructive pulmonary disease) Status: Chronic Assessment and plan: SEE PLAN OF CARE LISTED BELOW Current Visit: No (8) Hypertension Status: Chronic Assessment and plan: SEE PLAN OF CARE LISTED BELOW Current Visit: Yes (9) Ischemic cardiomyopathy Status: Chronic Assessment and plan: SEE PLAN OF CARE LISTED BELOW Current Visit: No (10) High risk medication use Status: Acute Assessment and plan: SEE PLAN OF CARE LISTED BELOW Current Visit: Yes (11) Arrhythmia Status: Acute Assessment and plan: SEE PLAN OF CARE LISTED BELOW Current Visit: Yes History of Present Illness Chief complaint: Palpitations, near syncope History of present illness: 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 Davidson, 51WM, with a history of: Known coronary artery disease ( multivessel coronary artery disease with previous interventions in the past), dyslipidemia, remote tobaccoism. History of ICD implantation December 20, [address] Momin for severe ischemic cardiomyopathy (EF 30-35%). History of chronic pain. Most recent [facility] December 18, 2016 revealed: Widely patent stents in multiple areas, EF 30-35% via LV Gram Patient presented to the ED of [facility] this morning after experiencing palpitations, dizziness, diaphoresis and near syncope around 1015 this morning. This lasted approximately 10 minutes and he felt as if he should be evaluated. He denies chest pain, heaviness or tightness. He felt as if he was becoming very weak and as if his heart was pumping out of his chest. He reports this is been occurring approximately 2 times per week for the past several months, lasting various amount of times from 2-3 minutes up to 10 at minutes at a time. He can identify no aggravating nor any alleviating factors. His defibrillator was interrogated while in the emergency department and found to have episode of SVT, NSVT. Labs are unremarkable, EKG does not reveal an acute event, possible early repolarization. At this time, patient is agreeable for hospitalization. Will continue to follow his cardiac biomarkers, EKG. He will be admitted for Sotalol load and will require hospitalization for at least 48 hours as we monitor his heart rhythm while on high risk medication. Will further discuss with Dr. Meza and await additional recommendations. ASSESSMENT/PLAN: 1. ARRYTHMIA - device interrogated and found to be having episodes of SVT, NSVT. Admitting for Sotalol load 2. NEAR SYNCOPE - suspect may be related to an arrhythmia. If carotid ultrasounds have not been checked we will check during the hospital stay. 3. KNOWN CAD - continue to cycle cardiac biomarkers, first set negative. EKG in the morning. 4. HYPERTENSION - will adjust medications accordingly during the hospital stay. 5. DYSLIPIDEMIA - fasting lipid profile in the morning. Continue lipid- lowering agent 6. ISCHEMIC CARDIOMYOPATHY - prior EF 30-35%. Status post ICD implantation. Continue current plan of care. 7. S/P ICD - interrogated this morning and found to be working appropriately. 8. HIGH RISK MEDICATION - will admit for Sotalol loading. Home Medications Medication Instructions Recorded Confirmed Type Clopidogrel Bisulfate [Clopidogrel] 75 mg PO QAM 03/13/15 03/11/17 History Diclofenac 1% Gel [Voltaren 1% Gel] 1 unit TRANSDERM BID PRN 03/13/15 03/11/17 History Hydrocodone/Acetaminophen 1 tablet PO QID 03/13/15 03/11/17 History [Hydrocodon-Acetaminophn 10-325] Tizanidine HCl 4 mg PO TID 03/13/15 03/11/17 History Nitroglycerin Sl Tab [Nitrostat] 0.4 mg SL Q5M PRN 07/07/16 03/11/17 History Nebivolol [Bystolic] 10 mg PO DAILY 12/18/16 03/11/17 History Rosuvastatin [Crestor] 20 mg PO BEDTIME tablet 12/21/16 03/11/17 Rx Aspirin Chew Tab 81 mg PO QAM 03/11/17 03/11/17 History Gabapentin 300 mg PO QID 03/11/17 03/11/17 History Allergies Allergy/AdvReac Type Severity Reaction Status Date / Time morphine Allergy Severe HIVES Verified 07/07/16 13:45 Sulfa (Sulfonamide Allergy Severe HIVES Verified 07/07/16 13:45 Antibiotics) sulfamethoxazole Allergy Severe HIVES Verified 07/07/16 13:45 [From Bactrim] trimethoprim [From Bactrim] Allergy Severe HIVES Verified 07/07/16 13:45 Review of systems: REVIEW OF SYSTEMS: - Constitutional Constitutional: Present: Fatigue, lightheadedness, near syncope. Absent: syncope, anorexia, night sweats - EENT Eyes: Absent: blurry vision, loss of vision, diplopia Ears: Absent: decreased hearing, ear pain, ear discharge - Cardiovascular Cardiovascular: Denies: chest pain with exertion, dyspnea on exertion. Denies edema. Frequent palpitations. Absent: chest pain with deep breath, claudication - Respiratory Respiratory: Denies: DENIS, cough. Absent: wheezing, hemoptysis, change in phlegm color - Gastrointestinal Gastrointestinal: Denies: constipation. Absent: abdominal pain, hematemesis, hematochezia, melena, change in bowel habits, nausea - Genitourinary Genitourinary: Absent: difficulty urinating, dysuria, urinary hesitancy, flank pain - Musculoskeletal Musculoskeletal: Present: back pain Absent: joint swelling, muscle cramps, muscle weakness - Neurological Neurological: Present: normal gait without frequent falls. Absent: dizziness, hemiparesis - Psychiatric Psychiatric: Absent: anxiety, depression, difficulty concentrating - Endocrine Endocrine: Present: fatigue. Absent: cold intolerance, heat intolerance, polyuria, polyphagia, polydipsia - Hematologic/Lymphatic Hematologic/Lymphatic: Present: easy bruising. Absent: easy bleeding -Integumentary Integumentary: Absent: lesions, rashes, skin breakdown Medical,Surgical,& Family Hx - Medical History Cardio: History of: CAD, Hypertension, [place] (x2 Stents x4) Psychological: History of: Anxiety Disorders Neurology: No history of: Seizures Respiratory: History of: COPD Gastrointestinal: History of: GERD - Surgical History Cardiac Surgeries: Sugical HX of: Cardiac Catheterization, Internal Defibrillator (8 weeks ago) Neurologic Surgeries: Patient denies: Neurologic Surgery HEENT Surgeries: Patient denies: Thyroid Surgery Abdominal Surgeries: Patient denies: Abdominal Surgery Reproductive Surgeries: Patient denies;: Genitourinary Surgery Orthopedic Surgeries: Surgical HX of;: Orthopedic Surgery, Spinal Surgery ( spinal fusion), Total Knee Replacement (left knee) - Family History Family History: Reports;: Family Cancer (father), Family Diabetes (mother), Family Heart Disease (grandparents (both sides), mother), Family Hypertension ( "everybody") Denies;: Family Anesthesia Reaction, Family Psychiatric Problems, Family Stroke - Social History Smoking Status: Former smoker Have you smoked in the last 12 months: No Cardiology Physical Exam - Constitutional Vitals: Vital Signs Temp Pulse Resp BP Pulse Ox 100.0 F H 89 18 140/101 97 03/11/17 11:18 03/11/17 11:18 03/11/17 12:51 03/11/17 11:18 03/11/17 12:29 Intake and Output 03/10/17 03/11/17 03/11/17 23:59 07:59 15:59 Other: Weight 54.431 kg Patient Weight 03/11/17 23:59 Weight 54.431 kg Exam: General: [Appears well with no apparent distress.] [Pleasant and cooperative. ] [Appears comfortable.] HEENT: [PERRL, normocephalic, atraumatic. Mucous membranes moist. No jaundice noted. Conjunctiva moist and clear, sclerae anicteric] Neck: No JVD/HJR, no thyromegaly or lymphadenopathy noted. No carotid bruit appreciated Cardiac: [Regular rate and rhythm.] [No obvious murmur rub or gallop.] Left chest wall reveals well-healed ICD implantation site Lungs: [Clear to auscultation without accessory muscle use to assist the respiratory pattern.] Not requiring oxygen Abdomen: Soft, bowel sounds normoactive. Nontender and nondistended. No abdominal bruit or thrill noted. No masses noted. Musculoskeletal: No fluid collection. Decreased range of motion is noted. Extremities: No clubbing, cyanosis noted. [ No edema noted.] Upper extremity pulses 2+. Lower extremity pulses 2+. Capillary refill less than 3 seconds. Skin: No unusual lesions or rashes. No skin breakdown appreciated. Neuro: Awake, alert and oriented 3. Moves all extremities well without hemiparesis or paralysis. No essential tremor is appreciated. Result/EKG - Labs CBC & BMP: 03/11/17 10:18 03/11/17 10:18 Lab Results: I have reviewed the past 24 hour labs Labs: Laboratory Results - last 24 hr 03/11/17 03/11/17 03/11/17 10:18 10:18 10:18 WBC 6.4 RBC 4.92 Hgb 15.6 Hct 45.3 MCV 92.1 MCH 32 MCHC 34.4 RDW 12.1 Plt Count 154 MPV 11.3 Neut % (Auto) 53.6 Lymph % (Auto) 32.6 [place] % (Auto) 10.0 Eos % (Auto) 3.0 Baso % (Auto) 0.6 Neut # (Auto) 3.5 Lymph # (Auto) 2.1 [place] # (Auto) 0.6 Eos # (Auto) 0.2 Baso # (Auto) 0.0 Immature Gran % 0.2 Nucleated RBC % 0.0 Immature Gran # 0.01 Nucleated RBCs # 0.00 INR 1.0 PT Patient/Control Mix 10.7 Sodium Potassium Chloride Carbon Dioxide Anion Gap BUN Creatinine GFR Calculation BUN/Creatinine Ratio Glucose Calculated Osmolality Calcium Magnesium 2.3 Total Bilirubin AST ALT Alkaline Phosphatase Total Creatine Kinase 135 CK-MB (CK-2) < 1.0 Troponin I < 0.015 Total Protein Albumin Globulin Albumin/Globulin Ratio Free T4 1.03 TSH 3rd Generation Urine Color Urine Appearance Urine pH Ur Specific [place] Urine Protein Urine Glucose (UA) Urine Ketones Urine Blood Urine Nitrate Urine Bilirubin Urine Urobilinogen Urine Leukocytes Urine RBC Urine WBC Urine Mucus Ur Culture Indicated? Urine Opiates Screen Ur Barbiturates Screen Ur Phencyclidine Scrn U Amphetamine/Methamph U Benzodiazepines Scrn U Cocaine Metab Screen U Cannabinoids Screen 03/11/17 03/11/17 03/11/17 10:18 12:23 12:42 WBC RBC Hgb Hct MCV MCH MCHC RDW Plt Count MPV Neut % (Auto) Lymph % (Auto) [place] % (Auto) Eos % (Auto) Baso % (Auto) Neut # (Auto) Lymph # (Auto) [place] # (Auto) Eos # (Auto) Baso # (Auto) Immature Gran % Nucleated RBC % Immature Gran # Nucleated RBCs # INR PT Patient/Control Mix Sodium 142 Potassium 4.1 Chloride 105 Carbon Dioxide 30 Anion Gap 11.1 BUN 16 Creatinine 0.90 GFR Calculation 95 BUN/Creatinine Ratio 17.00 Glucose 89 Calculated Osmolality 282.1 Calcium 9.3 Magnesium Total Bilirubin < 0.39 AST 21 ALT 18 Alkaline Phosphatase 74 Total Creatine Kinase CK-MB (CK-2) Troponin I < 0.015 Total Protein 7.4 Albumin 4.4 Globulin 3.0 Albumin/Globulin Ratio 1.4 Free T4 TSH 3rd Generation 0.988 Urine Color Yellow Urine Appearance Clear Urine pH 5.0 Ur Specific [place] 1.010 Urine Protein Negative Urine Glucose (UA) Negative Urine Ketones Negative Urine Blood Negative Urine Nitrate Negative Urine Bilirubin Negative Urine Urobilinogen < 2.0 H Urine Leukocytes Negative Urine RBC <1 Urine WBC <1 Urine Mucus Occasional Ur Culture Indicated? Not indicated Urine Opiates Screen Positive H Ur Barbiturates Screen Negative Ur Phencyclidine Scrn Negative U Amphetamine/Methamph Negative U Benzodiazepines Scrn Negative U Cocaine Metab Screen Negative U Cannabinoids Screen Negative - Diagnostic Findings Procedure: Chest x-ray: report reviewed by me - EKG EKG results: interpreted by me EKG shows: sinus rhythm (SVT, NSVT per tracings from ICD interrogation)
[2017-03-11] MEDS ORDERED: ONDANSETRON 4 MG/2 ML VIAL IV PRN (14:21)
[2017-03-11] MEDS ORDERED: MAGNESIUM SULF RIDER 2 GM in PREMIX 1 EACH IV PRN (14:24)
[2017-03-11] MEDS ORDERED: MAGNESIUM SULF RIDER 4 GM in PREMIX 1 EACH IV PRN ×3 (14:24→16:14)
[2017-03-11] MEDS ORDERED: NITROGLYCERIN SL 0.4 MG TABLET SL PRN (14:25)
[2017-03-11] MEDS ORDERED: ENOXAPARIN 40 MG/0.4 ML SYRINGE SUBCUT SCH ×3 (14:28→14:30)
[2017-03-11] MEDS ORDERED: tiZANidine 4 MG TABLET PO SCH ×3 (15:00→16:30)
[2017-03-11] MEDS ORDERED: GABAPENTIN 300 MG CAPSULE PO SCH ×3 (17:00)
[2017-03-11] MEDS: tiZANidine 4 MG TABLET PO SCH ×2 (17:34→21:00)
[2017-03-11] MEDS: GABAPENTIN 300 MG CAPSULE PO SCH ×2 (17:34→20:59)
[2017-03-11] MEDS ORDERED: SOTALOL 80 MG TABLET PO SCH ×3 (21:00)
[2017-03-11] MEDS ORDERED: ROSUVASTATIN 20 MG TABLET PO SCH ×3 (21:00)
[2017-03-11] MEDS ORDERED: CARVEDILOL 3.125 MG TABLET PO SCH ×3 (21:00)
[2017-03-11] MEDS: ROSUVASTATIN 20 MG TABLET PO SCH (21:01)
[2017-03-11] MEDS: SOTALOL 80 MG TABLET PO SCH (21:01)
[2017-03-11] MEDS: CARVEDILOL 6.25 MG TABLET PO SCH (21:01)
[2017-03-12 04:18] LABS: Basophils % 0.8 % (0.0-0.8); Eosinophils # 0.3 10*3/uL (0.0-0.87); Eosinophils % 6.9 % (0.00-10.9); Hematocrit 41.3 VOL% (42.0-52.0); Hemoglobin 14.2 GM/DL (14.0-18.0); Immature Granulocytes % 0.2 %; Immature Granulocytes Absolute 0.01 #; Lymphocytes # 2.5 10*3/uL (1.4-4.0); Lymphocytes % 51.6 % (21.2-54.2); Mean Corpuscular HGB Conc 34.4 GM/DL (32-36); Mean Corpuscular Hemoglobin 32 PG (27-34); Mean Platelet Volume 11.3 FL (9.6-12.0); Monocytes # 0.5 10*3/uL (0.11-0.8); Monocytes % 10.5 % (1.7-12.7); Neutrophils # 1.4 10*3/uL (1.4-7.4); Platelet Count 138 T/CUMM (130-400); Red Blood Count 4.49 MC/CUMM (3.8-5.5); Red Cell Distribution Width 12.3 % (9.3-17.3); White Blood Count 4.8 T/CUMM (4-12)
[2017-03-12 04:44] LABS: Calcium 8.8 MG/DL (8.5-10.1); Magnesium 2.2 MG/DL (1.8-2.4); Osmolality,Calculated 286.8 MOS/KG (273-304); Potassium 4.7 MMOL/L (3.5-5.1)
[2017-03-12 04:57] LABS: Eosinophils 6 % (0-10); Lymphocytes 56 % (20-55); Metamyelocytes 1 %; Myelocytes 2 %; Segmented Neutrophils 31 % (50-85); Total Cells Counted 100
[2017-03-12 04:58] LABS: Anisocytosis 1+; Hypochromasia Slight; Platelet Estimate Adequate
[2017-03-12] MEDS ORDERED: LISINOPRIL 10 MG TABLET PO SCH ×3 (09:00)
[2017-03-12] MEDS ORDERED: ASPIRIN CHEW 81 MG TABLET PO SCH ×3 (09:00)
[2017-03-12] MEDS ORDERED: PANTOPRAZOLE 40 MG TABLET PO SCH ×3 (09:00)
[2017-03-12] MEDS ORDERED: CLOPIDOGREL 75 MG TABLET PO SCH ×3 (09:00)
[2017-03-12] MEDS ORDERED: NEBIVOLOL 10 MG TABLET PO SCH (09:00)
[2017-03-12] MEDS: ASPIRIN CHEW 81 MG TABLET PO SCH (09:37)
[2017-03-12] MEDS: CLOPIDOGREL 75 MG TABLET PO SCH (09:37)
[2017-03-12] MEDS: tiZANidine 4 MG TABLET PO SCH ×3 (09:38→20:41)
[2017-03-12] MEDS: GABAPENTIN 300 MG CAPSULE PO SCH ×4 (09:38→20:41)
[2017-03-12] MEDS: SOTALOL 80 MG TABLET PO SCH ×2 (09:38→20:41)
[2017-03-12] MEDS: PANTOPRAZOLE 40 MG TABLET PO SCH (09:38)
[2017-03-12] MEDS: CARVEDILOL 6.25 MG TABLET PO SCH (09:38)
[2017-03-12] MEDS: LISINOPRIL 5 MG TABLET PO SCH (09:38)
[2017-03-12] MEDS: ENOXAPARIN 40 MG/0.4 ML SYRINGE SUBCUT SCH (09:39)
--- NOTE | 2017-03-12 11:36 | Cardiology Progress Note ---
Assessment and Plan (1) Ischemic cardiomyopathy Status: Chronic Assessment and plan: 51-year-old male, ischemic cardiomyopathy, CHF class III, hypertension, hyperlipidemia. DDD ICD. Admitted with recurrent palpitations, presyncope. ICD interrogation confirmed SVTs, suggestive of paroxysmal atrial fibrillation, also with episodes of regular SVT. These were short lasting, but had promient RVR and correlated with the patient's symptoms. He also has fewer episodes of short nonsustained VT's. No ACS. -SVT, NSVT. Cont sotalol load, 80 mg twice daily. Keep on telemetry, follow QTC. -CHF, ischemic cardiomyopathy. Low blood pressure limited optimization of CHF regimen in the past. Had a mild orthostatic symptoms, Dr. krausetalol was started. DC Coreg, I would continue the low-dose lisinopril, 5 mg daily for now. -Continue aspirin, clopidogrel, statin. -We will continue to monitor for A. fib burden with the ICD. So far, this was very low. If still has PAF, despite sotalol, he would be a candidate for anticoagulation. For now, I would prefer to continue dual antiplatelets, due to history of severe CAD, PCI. -t was 100.0. Resolved. TFTs normal. He is not septic, UA benign. Current Visit: No (2) history anterior infarction LAD stent Status: Chronic Current Visit: No (3) COPD (chronic obstructive pulmonary disease) Status: Chronic Current Visit: No (4) Depression Status: Chronic Current Visit: No (5) Near syncope Status: Acute Current Visit: Yes (6) High risk medication use Status: Acute Current Visit: Yes (7) Arrhythmia Status: Acute Current Visit: Yes Cardiology - PN: Subj Interval history: He had no significant arrhythmia or QTc prolongation on telemetry. He developed some orthostatic symptoms, after the sotalol was started. The pressure is normal right now. Exam (Progress Note) - Constitutional Vitals: Period Temp Pulse Resp BP Sys/Roland Pulse Ox Last 24 Hr 92.7 F-98.4 F 58-132 16-20 93-168/57-110 97-100 General appearance: normal weight, under weight - Head Head exam: Present: normal inspection, normocephalic - Eye Eye exam: Absent: conjunctival injection, scleral icterus Pupils: Absent: dilated - ENT ENT exam: Present: normal external ear exam - Neck Neck exam: Present: normal inspection - Respiratory Respiratory exam: Present: clear to auscultation bilaterally. Absent: accessory muscle use - Cardiovascular Cardiovascular exam: Present: regular rate and rhythm. Absent: JVD - GI/Abdominal GI/Abdominal exam: Present: normal bowel sounds. Absent: distended - Extremities Exam Extremities exam: Present: normal inspection, normal capillary refill. Absent: edema - Back Exam Back exam: Present: normal inspection - Neurological Exam Neurological exam: Present: alert, oriented X3 - Psychiatric Psychiatric exam: Present: normal affect, normal mood - Skin Skin exam: Present: normal color, warm. Absent: cyanosis Result/EKG - Labs CBC & BMP: 03/12/17 03:56 03/12/17 03:56 Lab Results: I have reviewed the past 24 hour labs Labs: Laboratory Results - last 24 hr 03/11/17 03/11/17 03/11/17 10:18 10:18 10:18 WBC 6.4 RBC 4.92 Hgb 15.6 Hct 45.3 MCV 92.1 MCH 32 MCHC 34.4 RDW 12.1 Plt Count 154 MPV 11.3 Neut % (Auto) 53.6 Lymph % (Auto) 32.6 [place] % (Auto) 10.0 Eos % (Auto) 3.0 Baso % (Auto) 0.6 Neut # (Auto) 3.5 Lymph # (Auto) 2.1 [place] # (Auto) 0.6 Eos # (Auto) 0.2 Baso # (Auto) 0.0 Total Counted Immature Gran % 0.2 Nucleated RBC % 0.0 Immature Gran # 0.01 Segmented Neutrophils Lymphocytes Monocytes Eosinophils Metamyelocytes Myelocytes Nucleated RBCs # 0.00 Platelet Estimate Hypochromasia Anisocytosis INR 1.0 PT Patient/Control Mix 10.7 Sodium Potassium Chloride Carbon Dioxide Anion Gap BUN Creatinine GFR Calculation BUN/Creatinine Ratio Glucose Calculated Osmolality Calcium Magnesium 2.3 Total Bilirubin AST ALT Alkaline Phosphatase Total Creatine Kinase 135 CK-MB (CK-2) < 1.0 Troponin I < 0.015 Total Protein Albumin Globulin Albumin/Globulin Ratio Free T4 1.03 TSH 3rd Generation Urine Color Urine Appearance Urine pH Ur Specific [place] Urine Protein Urine Glucose (UA) Urine Ketones Urine Blood Urine Nitrate Urine Bilirubin Urine Urobilinogen Urine Leukocytes Urine RBC Urine WBC Urine Mucus Ur Culture Indicated? Urine Opiates Screen Ur Barbiturates Screen Ur Phencyclidine Scrn U Amphetamine/Methamph U Benzodiazepines Scrn U Cocaine Metab Screen U Cannabinoids Screen 03/11/17 03/11/17 03/11/17 10:18 12:23 12:42 WBC RBC Hgb Hct MCV MCH MCHC RDW Plt Count MPV Neut % (Auto) Lymph % (Auto) [place] % (Auto) Eos % (Auto) Baso % (Auto) Neut # (Auto) Lymph # (Auto) [place] # (Auto) Eos # (Auto) Baso # (Auto) Total Counted Immature Gran % Nucleated RBC % Immature Gran # Segmented Neutrophils Lymphocytes Monocytes Eosinophils Metamyelocytes Myelocytes Nucleated RBCs # Platelet Estimate Hypochromasia Anisocytosis INR PT Patient/Control Mix Sodium 142 Potassium 4.1 Chloride 105 Carbon Dioxide 30 Anion Gap 11.1 BUN 16 Creatinine 0.90 GFR Calculation 95 BUN/Creatinine Ratio 17.00 Glucose 89 Calculated Osmolality 282.1 Calcium 9.3 Magnesium Total Bilirubin < 0.39 AST 21 ALT 18 Alkaline Phosphatase 74 Total Creatine Kinase CK-MB (CK-2) Troponin I < 0.015 Total Protein 7.4 Albumin 4.4 Globulin 3.0 Albumin/Globulin Ratio 1.4 Free T4 TSH 3rd Generation 0.988 Urine Color Yellow Urine Appearance Clear Urine pH 5.0 Ur Specific [place] 1.010 Urine Protein Negative Urine Glucose (UA) Negative Urine Ketones Negative Urine Blood Negative Urine Nitrate Negative Urine Bilirubin Negative Urine Urobilinogen < 2.0 H Urine Leukocytes Negative Urine RBC <1 Urine WBC <1 Urine Mucus Occasional Ur Culture Indicated? Not indicated Urine Opiates Screen Positive H Ur Barbiturates Screen Negative Ur Phencyclidine Scrn Negative U Amphetamine/Methamph Negative U Benzodiazepines Scrn Negative U Cocaine Metab Screen Negative U Cannabinoids Screen Negative 03/12/17 03/12/17 03:56 03:56 WBC 4.8 RBC 4.49 Hgb 14.2 Hct 41.3 L MCV 92.0 MCH 32 MCHC 34.4 RDW 12.3 Plt Count 138 MPV 11.3 Neut % (Auto) 30.0 L Lymph % (Auto) 51.6 [place] % (Auto) 10.5 Eos % (Auto) 6.9 Baso % (Auto) 0.8 Neut # (Auto) 1.4 Lymph # (Auto) 2.5 [place] # (Auto) 0.5 Eos # (Auto) 0.3 Baso # (Auto) 0.0 Total Counted 100 Immature Gran % 0.2 Nucleated RBC % 0.0 Immature Gran # 0.01 Segmented Neutrophils 31 L Lymphocytes 56 H Monocytes 4 Eosinophils 6 Metamyelocytes 1 Myelocytes 2 Nucleated RBCs # 0.00 Platelet Estimate Adequate Hypochromasia Slight Anisocytosis 1+ INR PT Patient/Control Mix Sodium 144 Potassium 4.7 Chloride 108 H Carbon Dioxide 32 Anion Gap 8.7 BUN 16 Creatinine 0.90 GFR Calculation 92 BUN/Creatinine Ratio 17.00 Glucose 96 Calculated Osmolality 286.8 Calcium 8.8 Magnesium 2.2 Total Bilirubin AST ALT Alkaline Phosphatase Total Creatine Kinase CK-MB (CK-2) Troponin I Total Protein Albumin Globulin Albumin/Globulin Ratio Free T4 TSH 3rd Generation Urine Color Urine Appearance Urine pH Ur Specific [place] Urine Protein Urine Glucose (UA) Urine Ketones Urine Blood Urine Nitrate Urine Bilirubin Urine Urobilinogen Urine Leukocytes Urine RBC Urine WBC Urine Mucus Ur Culture Indicated? Urine Opiates Screen Ur Barbiturates Screen Ur Phencyclidine Scrn U Amphetamine/Methamph U Benzodiazepines Scrn U Cocaine Metab Screen U Cannabinoids Screen - EKG EKG results: interpreted by me
--- NOTE | 2017-03-12 14:22 | EKG Report ---
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
--- NOTE | 2017-03-12 15:22 | EKG Report ---
Stationary ECG Study [facility] Test Date: 03/11/2017 11:25:50 AM Pat Name: SHEILA SULLIVAN Department: Room: 296 Gender: M A R Specialist: : [id number] Requested by: Tavares Yousif Order Number: [id number] Reading MD: MICA JONES Intervals [place] Rate: 75 P: 70 ID: [id number] QRS: 64 QRSD: 92 T: 67 QT: 374 QTc: 403 Interpretive Statements SINUS RHYTHM Electronically Signed On 03-13-17 06:23:07 CDT by MICA JONES [email or web address]
[2017-03-12] MEDS: ROSUVASTATIN 20 MG TABLET PO SCH (20:42)
[2017-03-13 04:35] LABS: Basophils # 0.1 10*3/uL (0.0-0.2); Eosinophils # 0.5 10*3/uL (0.0-0.87); Eosinophils % 8.7 % (0.00-10.9); Hematocrit 43.1 VOL% (42.0-52.0); Hemoglobin 14.6 GM/DL (14.0-18.0); Immature Granulocytes % 0.2 %; Immature Granulocytes Absolute 0.01 #; Lymphocytes # 2.6 10*3/uL (1.4-4.0); Lymphocytes % 50.5 % (21.2-54.2); Mean Corpuscular HGB Conc 33.9 GM/DL (32-36); Mean Corpuscular Hemoglobin 31 PG (27-34); Mean Corpuscular Volume 91.9 FL (87-102); Mean Platelet Volume 11.1 FL (9.6-12.0); Monocytes # 0.6 10*3/uL (0.11-0.8); Monocytes % 10.6 % (1.7-12.7); Neutrophils # 1.5 10*3/uL (1.4-7.4); Platelet Count 151 T/CUMM (130-400); Red Blood Count 4.69 MC/CUMM (3.8-5.5); Red Cell Distribution Width 12.1 % (9.3-17.3); White Blood Count 5.2 T/CUMM (4-12)
[2017-03-13 05:02] LABS: Calcium 9.3 MG/DL (8.5-10.1); Magnesium 2.2 MG/DL (1.8-2.4); Osmolality,Calculated 279.4 MOS/KG (273-304); Potassium 4.7 MMOL/L (3.5-5.1)
[2017-03-13 06:28] LABS: Eosinophils 3 % (0-10); Lymphocytes 62 % (20-55); Platelet Estimate Normal; Segmented Neutrophils 30 % (50-85); Total Cells Counted 100
[2017-03-13] MEDS: CLOPIDOGREL 75 MG TABLET PO SCH (09:14)
[2017-03-13] MEDS: PANTOPRAZOLE 40 MG TABLET PO SCH (09:14)
[2017-03-13] MEDS: LISINOPRIL 5 MG TABLET PO SCH (09:14)
[2017-03-13] MEDS: ASPIRIN CHEW 81 MG TABLET PO SCH (09:15)
[2017-03-13] MEDS: GABAPENTIN 300 MG CAPSULE PO SCH ×4 (09:15→21:42)
[2017-03-13] MEDS: SOTALOL 80 MG TABLET PO SCH ×2 (09:15→21:42)
[2017-03-13] MEDS: tiZANidine 4 MG TABLET PO SCH ×3 (09:15→21:42)
[2017-03-13] MEDS: ENOXAPARIN 40 MG/0.4 ML SYRINGE SUBCUT SCH (09:16)
--- NOTE | 2017-03-13 12:04 | Cardiology Progress Note ---
Assessment and Plan (1) Ischemic cardiomyopathy Status: Chronic Assessment and plan: 51-year-old male, ischemic cardiomyopathy, CHF class III, hypertension, hyperlipidemia. DDD ICD. Admitted with recurrent palpitations, presyncope. ICD interrogation confirmed SVTs, suggestive of paroxysmal atrial fibrillation, also with episodes of regular SVT. These were short lasting, but had promient RVR and correlated with the patient's symptoms. He also has fewer episodes of short nonsustained VT's. No ACS. -SVT, NSVT. Cont sotalol load, 80 mg twice daily. Keep on telemetry, follow QTC. -CHF, ischemic cardiomyopathy. Low blood pressure limited optimization of CHF regimen in the past. Had mild orthostatic symptoms. DCd Coreg, cont low dose lisinopril. -Continue aspirin, clopidogrel, statin. -We will continue to monitor for A. fib burden with the ICD. So far, this was very low. If still has PAF, despite sotalol, he would be a candidate for anticoagulation. For now, I would prefer to continue dual antiplatelets, due to history of severe CAD, PCI. -t was 100.0. Resolved. TFTs normal. He is not septic, UA benign. -Plan to discharge home tomorrow, if completes sotalol load without issues Current Visit: No (2) history anterior infarction LAD stent Status: Chronic Current Visit: No (3) COPD (chronic obstructive pulmonary disease) Status: Chronic Current Visit: No (4) Depression Status: Chronic Current Visit: No (5) Near syncope Status: Acute Current Visit: Yes (6) High risk medication use Status: Acute Current Visit: Yes (7) Arrhythmia Status: Acute Current Visit: Yes Cardiology - PN: Subj Interval history: He is feeling fine. No proarrhythmia or significant QTc prolongation noted. Exam (Progress Note) - Constitutional Vitals: Period Temp Pulse Resp BP Sys/Roland Pulse Ox Last 24 Hr 97 F-98.4 F 61-73 16-20 109-156/59-91 98-100 General appearance: no acute distress, under weight - Head Head exam: Present: normal inspection, normocephalic - Eye Eye exam: Absent: conjunctival injection, periorbital swelling, scleral icterus Pupils: Absent: dilated - ENT ENT exam: Present: normal external ear exam - Neck Neck exam: Present: normal inspection - Respiratory Respiratory exam: Present: clear to auscultation bilaterally. Absent: wheezes - Cardiovascular Cardiovascular exam: Present: regular rate and rhythm. Absent: JVD - GI/Abdominal GI/Abdominal exam: Present: normal bowel sounds. Absent: distended - Extremities Exam Extremities exam: Present: normal inspection, normal capillary refill. Absent: edema - Back Exam Back exam: Present: normal inspection - Neurological Exam Neurological exam: Present: alert, oriented X3 - Psychiatric Psychiatric exam: Present: normal affect, normal mood - Skin Skin exam: Present: normal color, warm. Absent: cyanosis Result/EKG - Labs CBC & BMP: 03/13/17 04:02 03/13/17 04:02 Lab Results: I have reviewed the past 24 hour labs Labs: Laboratory Results - last 24 hr 03/13/17 03/13/17 04:02 04:02 WBC 5.2 RBC 4.69 Hgb 14.6 Hct 43.1 MCV 91.9 MCH 31 MCHC 33.9 RDW 12.1 Plt Count 151 MPV 11.1 Neut % (Auto) 29.0 L Lymph % (Auto) 50.5 [place] % (Auto) 10.6 Eos % (Auto) 8.7 Baso % (Auto) 1.0 H Neut # (Auto) 1.5 Lymph # (Auto) 2.6 [place] # (Auto) 0.6 Eos # (Auto) 0.5 Baso # (Auto) 0.1 Total Counted 100 Immature Gran % 0.2 Nucleated RBC % 0.0 Immature Gran # 0.01 Segmented Neutrophils 30 L Lymphocytes 62 H Monocytes 5 Eosinophils 3 Nucleated RBCs # 0.00 Platelet Estimate Normal [employer]appen[employer] B[employer] Imaging Manager Sodium 140 Potassium 4.7 Chloride 103 Carbon Dioxide 32 Anion Gap 9.7 BUN 17 Creatinine 0.80 GFR Calculation 97 BUN/Creatinine Ratio 21.00 H Glucose 88 Calculated Osmolality 279.4 Calcium 9.3 Magnesium 2.2 - EKG EKG results: interpreted by me
--- NOTE | 2017-03-13 14:09 | EKG Report ---
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
[2017-03-13] MEDS: ROSUVASTATIN 20 MG TABLET PO SCH (21:42)
[2017-03-14 06:00] LABS: Basophils % 0.9 % (0.0-0.8); Eosinophils # 0.4 10*3/uL (0.0-0.87); Eosinophils % 7.7 % (0.00-10.9); Hematocrit 42.3 VOL% (42.0-52.0); Hemoglobin 14.5 GM/DL (14.0-18.0); Immature Granulocytes % 0.4 %; Immature Granulocytes Absolute 0.02 #; Lymphocytes # 2.2 10*3/uL (1.4-4.0); Lymphocytes % 48.2 % (21.2-54.2); Mean Corpuscular HGB Conc 34.3 GM/DL (32-36); Mean Corpuscular Hemoglobin 31 PG (27-34); Mean Corpuscular Volume 91.6 FL (87-102); Mean Platelet Volume 11.7 FL (9.6-12.0); Monocytes # 0.5 10*3/uL (0.11-0.8); Monocytes % 11.6 % (1.7-12.7); Neutrophils # 1.4 10*3/uL (1.4-7.4); Neutrophils % 31.2 % (38.7-73.9); Platelet Count 144 T/CUMM (130-400); Red Blood Count 4.62 MC/CUMM (3.8-5.5); Red Cell Distribution Width 11.9 % (9.3-17.3); White Blood Count 4.6 T/CUMM (4-12)
[2017-03-14 06:36] LABS: Calcium 8.6 MG/DL (8.5-10.1); Magnesium 2.1 MG/DL (1.8-2.4); Osmolality,Calculated 283.1 MOS/KG (273-304); Potassium 4.9 MMOL/L (3.5-5.1)
[2017-03-14 06:44] LABS: Eosinophils 7 % (0-10); Hypochromasia 1+; Lymphocytes 51 % (20-55); Segmented Neutrophils 29 % (50-85); Total Cells Counted 100
[2017-03-14 06:45] LABS: Microcytosis Slight; Platelet Estimate Adequate
--- NOTE | 2017-03-14 07:38 | EKG Report ---
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
--- NOTE | 2017-03-14 07:55 | Physician Query Form ---
CLICK EDIT DOCUMENT TO SELECT QUERY ANSWER --> OK --> SIGN Radha Martinez RN, CCDS Certified Clinical Forest Officer W) [phone] (f) [phone] [email or web address] PROVIDERS: Make your selection(s) from the choices in EACH section by typing an "x" and enter comments in the comment section. Please use your independent medical judgment in providing your response. This request does not imply that any particular answer is desired or expected. CLINICAL INDICATORS: (Providers should not edit this section) The medical record indicates that the patient was admitted with some SVT/ PAF, "Ischemic cardiomyopathy", "EF 30-35% via LV Gram" and patient was on Coreg. Please provide further specificity regarding CHF. TYPE: ( ) Systolic (HFrEF - heart failure with reduced systolic function/EF) ( ) Diastolic (HFpEF - heart failure with preserved systolic function/EF) (x) Combined Systolic/Diastolic ( ) Other, please specify: ( ) Clinically unable to determine ( ) The patient does NOT have CHF COMMENTS: PLEASE ALSO DOCUMENT RESPONSE IN PROGRESS NOTES AND/OR DISCHARGE SUMMARY Use of terms such as suspected, likely, or probable (associated with a specific diagnosis that is being evaluated, monitored, or treated as if it exists) are acceptable and can be restated in the discharge summary if not ruled out. MTDD
[2017-03-14] MEDS: PANTOPRAZOLE 40 MG TABLET PO SCH (08:37)
[2017-03-14] MEDS: GABAPENTIN 300 MG CAPSULE PO SCH (08:37)
[2017-03-14] MEDS: SOTALOL 80 MG TABLET PO SCH (08:37)
[2017-03-14] MEDS: LISINOPRIL 5 MG TABLET PO SCH (08:38)
[2017-03-14] MEDS: tiZANidine 4 MG TABLET PO SCH (08:39)
[2017-03-14] MEDS: CLOPIDOGREL 75 MG TABLET PO SCH (08:39)
[2017-03-14] MEDS: ASPIRIN CHEW 81 MG TABLET PO SCH (08:39)
[2017-03-14] MEDS: ENOXAPARIN 40 MG/0.4 ML SYRINGE SUBCUT SCH (08:39)
[2017-03-14 11:19] VITALS: BP 115/78
--- NOTE | 2017-03-14 12:35 | Discharge Summary ---
Hospital Course - Hospital Course Hospital Course: Mr. Davidson is a 51-year-old male with a history of ischemic cardiomyopathy, CHF class III, hypertension, hyperlipidemia who presented to the emergency room after experiencing palpitations, dizziness, diaphoresis, and near syncope. ICD interrogation confirmed SVTs, suggestive of paroxysmal atrial fibrillation, also with episodes of regular SVT. These are short lasting but the patient had prominent RVR and correlated with his symptoms. He also had a few episodes of short nonsustained VT's. He was admitted to the hospital for sotalol load. His QTC has been within normal limits. He did have an initial temperature of 100 but has shown no signs of sepsis, UA has been benign and WBC has been normal. He has been atrial pacing with underlying sinus rhythm. We will continue to monitor for A. fib burden with ICD; if he continues to have PAF despite the sotalol, he would be a candidate for anticoagulation. At this time, we will continue with dual antiplatelet therapy given his history of severe CAD and PCI. His vital signs and lab work have been stable. At this time, he is felt to have met maximum benefit from hospitalization and will be discharged home in stable condition. He will need follow-up with Dr. Castaneda in 2-3 weeks with an EKG. - Time spent with patient Time with patient DS: Less than 30 minutes Diagnosis - Discharge Diagnosis (1) Arrhythmia Status: Resolved (2) High risk medication use Status: Chronic (3) Near syncope Status: Resolved (4) Palpitations Status: Resolved (5) Dyslipidemia Status: Chronic (6) Hypertension Status: Chronic (7) Ischemic cardiomyopathy Status: Chronic (8) CAD (coronary artery disease) Status: Chronic Specialty Discharge - Follow Up or Referrals Follow up with: Rayne Castaneda MD [Physician] - 2 Weeks (Follow up with Dr. Castaneda within 2-3 weeks with EKG. ) Discharge Plan - Discharge Data Disposition: Disch To Home/Self Care Condition at Discharge: Stable Discharge Diet: heart healthy Activity: resume usual activities as tolerated Hygiene: no restrictions Weight Bearing at Discharge: full weight bearing Driving: no restrictions Contact your physician if you experience:: fever over 101, Difficulty voiding, Redness or swelling, Nausea/Vomiting, Shortness of breath, Bleeding, pain uncontrolled by pain medications - Discharge Medications New Lisinopril [Prinivil] 5 mg PO DAILY #30 tablet Sotalol [Betapace] 80 mg PO BID #60 tablet Continue Hydrocodone/Acetaminophen [Hydrocodon-Acetaminophn 10-325] 1 tablet PO QID Tizanidine HCl 4 mg PO TID Diclofenac 1% Gel [Voltaren 1% Gel] 1 unit TRANSDERM BID PRN PRN Reason: Pain Clopidogrel Bisulfate [Clopidogrel] 75 mg PO QAM Nitroglycerin Sl Tab [Nitrostat] 0.4 mg SL Q5M PRN PRN Reason: Chest Pain Aspirin Chew Tab 81 mg PO QAM Rosuvastatin [Crestor] 20 mg PO BEDTIME tablet Gabapentin 300 mg PO QID No Action Nebivolol [Bystolic] 10 mg PO DAILY - Follow Up or Referral - Forms/Instructions Exam - Constitutional Vitals: Period Temp Pulse Resp BP Sys/Roland Pulse Ox Last 24 Hr 97.0 F-98.6 F 62-63 14-20 108-134/69-92 95-100 Exam: General: Appears well with no apparent distress. Pleasant and cooperative. Appears comfortable. HEENT: PERRL, normocephalic, atraumatic. Mucous membranes moist. No jaundice noted. Conjunctiva moist and clear, sclerae anicteric Neck: No JVD/HJR, no thyromegaly or lymphadenopathy noted. No carotid bruit appreciated Cardiac: Regular rate and rhythm. No obvious murmur rub or gallop. Left chest wall reveals well-healed ICD implantation site Lungs: Clear to auscultation without accessory muscle use to assist the respiratory pattern. Not requiring oxygen Abdomen: Soft, bowel sounds normoactive. Nontender and nondistended. No abdominal bruit or thrill noted. No masses noted. Musculoskeletal: No fluid collection. Decreased range of motion is noted. Extremities: No clubbing, cyanosis noted. No edema noted. Upper extremity pulses 2+. Lower extremity pulses 2+. Capillary refill less than 3 seconds. Skin: No unusual lesions or rashes. No skin breakdown appreciated. Neuro: Awake, alert and oriented 3. Moves all extremities well without hemiparesis or paralysis. No essential tremor is appreciated. Discharge Results Labs on day of discharge: Labs from last 24 hours 03/14/17 03/14/17 05:17 05:17 WBC 4.6 RBC 4.62 Hgb 14.5 Hct 42.3 MCV 91.6 MCH 31 MCHC 34.3 RDW 11.9 Plt Count 144 MPV 11.7 Neut % (Auto) 31.2 L Lymph % (Auto) 48.2 Merrick % (Auto) 11.6 Eos % (Auto) 7.7 Baso % (Auto) 0.9 H Neut # (Auto) 1.4 Lymph # (Auto) 2.2 Merrick # (Auto) 0.5 Eos # (Auto) 0.4 Baso # (Auto) 0.0 Total Counted 100 Immature Gran % 0.4 Nucleated RBC % 0.0 Immature Gran # 0.02 Segmented Neutrophils 29 L Lymphocytes 51 Monocytes 11 Eosinophils 7 Basophils 2.0 H Nucleated RBCs # 0.00 Platelet Estimate Adequate Hypochromasia 1+ Microcytosis Slight Sodium 142 Potassium 4.9 Chloride 104 Carbon Dioxide 33 H Anion Gap 9.9 BUN 19 H Creatinine 0.90 GFR Calculation 94 BUN/Creatinine Ratio 21.00 H Glucose 87 Calculated Osmolality 283.1 Calcium 8.6 Magnesium 2.1 DS: Provider Date of admission: 03/11/17 14:21 Primary care physician: Ioana Kennedy MD Attending physician on admission: Myles Meza MD Consults: 03/11/17 16:36 Consult to Dietitian [CONS] Routine Reason for Dietitian: Dietary Consult Discharging clinician: SHERRIE Sprague Expected date of discharge: 03/14/17
== END 2017-03-14 13:12 | disposition home or self-care (01) | DRG 309 ==
LOC: N.ED 11:12 → N.TELEN 14:21 → N.ED 16:11
PROVIDERS: ADMIT Internal Medicine Clinical Cardiac Electrophysiology; ATTEND Internal Medicine Clinical Cardiac Electrophysiology